=== PATIENT | female | born 1970 | race Caucasian/White ===

== ENCOUNTER 2020-11-15 11:44 | Emergency (ER) | payer OTHER ==
[~2020-11-15 11:44] MED LIST: ELIQUIS5 MG PO; HYDROCHLOROTHIA25 MG PO; LISINOPRIL20 MG PO; MYCOLOG II CREA15 GM EXT; NORVASC 5 MG TAB5 MG PO; ZOFRAN2 MG/1 ML PO
[2020-11-15 12:30] LABS: HEMOGLOBIN 11.6 gm/dl (12.3-15.3); RED BLOOD COUNT 3.89 M/UL (4.00-5.10); WHITE BLOOD COUNT 4.5 K/UL (4.5-11.0)
== END 2020-11-15 14:05 | disposition home or self-care (01) ==
LOC: ER1 11:44
PROVIDERS: Physician Assistant Medical
DX: R09.1 Pleurisy (principal); I10 Essential (primary) hypertension; Z79.01 Long term (current) use of anticoagulants
CPT/HCPCS: 80053; 82550; 82553; 83874; 84484; 85025; 85610; 93005; 99285; Q9967

== ENCOUNTER 2021-04-07 18:19 | Emergency (ER) | payer OTHER ==
[2021-04-07 20:49] LABS: HEMOGLOBIN 12.4 gm/dl (12.3-15.3); RED BLOOD COUNT 4.09 M/UL (4.00-5.10); WHITE BLOOD COUNT 9.4 K/UL (4.5-11.0)
[2021-04-07 21:11] LABS: BUN/CREATININE RATIO 19 (0-10)
[2021-04-07] MEDS ORDERED: PROAIR HFA8.5 GM INH ×2 (23:29→23:52)
== END 2021-04-07 23:45 | disposition home or self-care (01) ==
LOC: ER1 18:19
PROVIDERS: Emergency Medicine
DX: U07.1 COVID-19 (principal); I10 Essential (primary) hypertension
CPT/HCPCS: 71046; 71250; 80053; 81001; 82550; 82553; 83874; 83880; 84484; 85025; 85610; 85730; 93005; 94664; 99285

== ENCOUNTER 2021-05-04 08:29 | Emergency (ER) | payer OTHER ==
[~2021-05-04 08:29] MED LIST changes: +PROAIR HFA8.5 GM INH
== END 2021-05-04 08:46 | disposition left against medical advice (07) ==
LOC: ER1 08:29
DX: Z53.21 Procedure and treatment not carried out due to patient leaving prior to being seen by health care provider (principal)

== ENCOUNTER 2021-05-10 07:49 | Emergency (ER) | payer OTHER ==
[2021-05-10 08:40] LABS: HEMOGLOBIN 12.9 gm/dl (12.3-15.3); RED BLOOD COUNT 4.47 M/UL (4.00-5.10); WHITE BLOOD COUNT 4.5 K/UL (4.5-11.0)
[2021-05-10] MEDS ORDERED: CYCLOBENZAPRINE10 MG PO (09:34)
[2021-05-10] MEDS ORDERED: OMNICEF 300 MG300 MG PO (09:34)
== END 2021-05-10 10:00 | disposition home or self-care (01) ==
LOC: ER1 07:49
PROVIDERS: Emergency Medicine
DX: M51.36 Other intervertebral disc degeneration, lumbar region (principal); I10 Essential (primary) hypertension; Z86.711 Personal history of pulmonary embolism; Z79.01 Long term (current) use of anticoagulants; X50.9XXA Other and unspecified overexertion or strenuous movements or postures, initial encounter; Y92.89 Other specified places as the place of occurrence of the external cause; Y99.0 Civilian activity done for income or pay
CPT/HCPCS: 80053; 81001; 83880; 85025; 85652; 86140; 87086; 96374; 99283; J1885; J2270; J2405

== ENCOUNTER 2021-05-23 05:39 | Observation (INO) | payer OTHER ==
[~2021-05-23] VITALS: Ht 162.6 cm; Wt 62.6 kg
[~2021-05-23 05:39] MED LIST changes: +CYCLOBENZAPRINE10 MG PO; -HYDROCHLOROTHIA25 MG PO; -NORVASC 5 MG TAB5 MG PO; +OMNICEF 300 MG300 MG PO
[2021-05-23 06:09] LABS: HEMOGLOBIN 13.3 gm/dl (12.3-15.3); RED BLOOD COUNT 4.57 M/UL (4.00-5.10); WHITE BLOOD COUNT 4.7 K/UL (4.5-11.0)
[2021-05-23 06:36] LABS: BUN/CREATININE RATIO 15 (0-10)
[2021-05-23] MEDS ORDERED: VITAMIN D325 MCG PO (11:27)
[2021-05-23] MEDS ORDERED: CYCLOBENZAPRINE10 MG PO (11:27)
[2021-05-23] MEDS ORDERED: NORVASC10 MG PO (15:24)
[2021-05-23] MEDS ORDERED: HYDROCHLOROTHIA25 MG PO (15:25)
--- NOTE | 2021-05-23 18:25 | NUR ---
1420 Patient on diet as tolerated, told her to tell us when she thought she could tolerated fluids & I would put a diet in for her. She asked for broth so a Clear Liquid Diet Order put in. Patient did not like anything on the tray, stated the broth had grease on it, she didn't like Jello & she sure couldn't drink lemonade when she was nauseated. Asked patient if she would like to try a Full Liquid Diet. She stated she would try. When Full Liquid Diet came up she didn't like anything on it. She requested a Regular Diet for dinner. Dr Peterson informed, stated to give her a AHA Diet. 1730 AHA Diet provided for dinner, a few bites taken.
[2021-05-23 20:40] LABS: BUN/CREATININE RATIO 13 (0-10)
[2021-05-24 06:02] LABS: HEMOGLOBIN 12.3 gm/dl (12.3-15.3); RED BLOOD COUNT 4.19 M/UL (4.00-5.10)
[2021-05-24 06:07] LABS: WHITE BLOOD COUNT 2.5 K/UL (4.5-11.0)
[2021-05-24 06:22] LABS: BUN/CREATININE RATIO 9 (0-10)
[2021-05-24] MEDS ORDERED: PHENERGAN 12.12.5 M1 PO (09:41)
[2021-05-24] MEDS ORDERED: ASPIRIN EC81 MG PO (10:39)
== END 2021-05-24 10:45 | disposition home or self-care (01) ==
LOC: ER1 05:39 → CDU 08:09 → MED SURG 4 08:09
PROVIDERS: Internal Medicine Nephrology; Physician Assistant; Physician Assistant Medical; ADMIT Internal Medicine
DX: R11.2 Nausea with vomiting, unspecified (principal); R07.9 Chest pain, unspecified; Z20.822 Contact with and (suspected) exposure to COVID-19; E83.42 Hypomagnesemia; R19.7 Diarrhea, unspecified; E87.1 Hypo-osmolality and hyponatremia; K31.84 Gastroparesis; E86.0 Dehydration; R17 Unspecified jaundice; I10 Essential (primary) hypertension; R82.71 Bacteriuria; K44.9 Diaphragmatic hernia without obstruction or gangrene; I47.1 Supraventricular tachycardia; I25.2 Old myocardial infarction; Z79.01 Long term (current) use of anticoagulants; Z79.899 Other long term (current) drug therapy; Z86.711 Personal history of pulmonary embolism
CPT/HCPCS: ECHO; 36415; 71045; 80048; 80053; 81001; 82550; 82553; 82962; 83735; 83880; 84439; 84443; 84484; 84550; 85025; 85027; 85610; 85730; 87077; 87086; 87186; 93005; 93306; 96365; 96375; 96376; 99285; C9113; G0378; J2405; J2550; J3475; J7030; U0002

== ENCOUNTER 2021-10-04 04:29 | Emergency (ER) | payer OTHER ==
[~2021-10-04 04:29] MED LIST changes: +ASPIRIN EC81 MG PO; +HYDROCHLOROTHIA25 MG PO; +NORVASC10 MG PO; +PHENERGAN 12.12.5 M1 PO; +VITAMIN D325 MCG PO
[2021-10-04] MEDS ORDERED: HYDROCODON-ACE1 EAC4 PO (08:07)
== END 2021-10-04 09:02 | disposition home or self-care (01) ==
LOC: ER1 04:29
DX: S32.019A Unspecified fracture of first lumbar vertebra, initial encounter for closed fracture (principal); I10 Essential (primary) hypertension; W01.0XXA Fall on same level from slipping, tripping and stumbling without subsequent striking against object, initial encounter; Y92.009 Unspecified place in unspecified non-institutional (private) residence as the place of occurrence of the external cause
CPT/HCPCS: 72128; 72131; 73502; 99284; J2270; J2405

== ENCOUNTER 2021-10-06 07:24 | Emergency (ER) | payer OTHER ==
[~2021-10-06 07:24] MED LIST changes: +HYDROCODON-ACE1 EAC4 PO
[2021-10-06 09:10] LABS: RED BLOOD COUNT 4.33 M/UL (4.00-5.10)
[2021-10-06 09:31] LABS: BUN/CREATININE RATIO 17 (0-10)
== END 2021-10-06 09:55 | disposition left against medical advice (07) ==
LOC: ER1 07:24
PROVIDERS: Physician Assistant
DX: K59.00 Constipation, unspecified (principal); I10 Essential (primary) hypertension; Z86.711 Personal history of pulmonary embolism; Z90.49 Acquired absence of other specified parts of digestive tract; Z90.5 Acquired absence of kidney; Z91.09 Other allergy status, other than to drugs and biological substances
CPT/HCPCS: 80053; 85025; 96374; 99283; J2550